=== PATIENT | female | born 1970 | race Caucasian/White ===

== ENCOUNTER → 2017-06-02 | Day surgery (SDC) | payer BC ==
--- NOTE | 2017-06-05 16:16 | PATH ---
Surgical Pathology Report Patient Name: MAHIN BURGOS Med. Rec. #: [id number] /Age/Gender: 1970 (Age: 46) / F Account: [id number] Location: [facility] RADIOLOGY U Taken: 06/02/2017 Received: 06/02/2017 Reported: 06/05/2017 Physicians: Hai You M.D. Specimen(s) Received RIGHT BREAST CORE BX, 2:00 TO 3:00, 1CM FN Clinical History Ultrasound findings: Suspicious Final Diagnosis BREAST, RIGHT, 2-3:00, 1 CM FN, CORE BIOPSY: INVASIVE DUCTAL CARCINOMA, WELL DIFFERENTIATED, AT LEAST 2MM IN THIS MATERIAL. Comment: Breast prognostic markers are pending. Findings will be issued as an addendum. Electronically Signed Lily Coburn M.D. Addendum Reported: 06/06/2017 Addendum Diagnosis Comment: Immunohistochemical stains performed and interpreted at [facility] for p63 and smooth muscle myosin heavy chain were utilized to evaluate this case. Results of Estrogen Receptor (ER) and Progesterone Receptor (VA) studies performed on block "1 " at [facility] are as follows: ER (clone [id number] mouse monoclonal antibody by [employer]): 95 % nuclear staining with moderate intensity (Positive). VA (clone16 mouse monoclonal antibody by [employer]): 90% nuclear staining with strong intensity (Positive). Results of Her2 (IHC) & Ki-67 studies performed on block "1 " at [place], [place] ([id number]) are as follows: Her2 IHC (EP3 from [employer], formerly known as [id number], using [employer] Polymer Refine detection kit): 1+ (Negative) Ki-67: up to 10% (Low proliferative index). Positive and negative controls (internal if applicable) show appropriate results. Formalin fixation and cold ischemic times are within current ASCO/CAP recommendations for ER, VA and Her2 testing. Lily Coburn M.D. Gross Description Received in formalin labeled "right breast 2-3:00, 1 cm fn," are 5 waterman-yellow, cylindrical portions of fibroadipose tissue ranging from 0.5-1.5 cm in length and averaging 0.2 cm in diameter. The specimens are submitted in toto in one cassette. Time to formalin fixation: 2 minutes Total formalin fixation time: Approximately 10 hours 06/02/2017
== END | disposition home or self-care (01) ==
LOC: FRADUS-SUR 12:38
PROVIDERS: ATTEND Surgery Surgical Oncology
PROC: 0HBT3ZX Excision of Right Breast, Percutaneous Approach, Diagnostic (ICD-10-PCS; principal; 2017-06-02)
DX: C50.211 Malignant neoplasm of upper-inner quadrant of right female breast (principal); N63.12 Unspecified lump in the right breast, upper inner quadrant
CPT/HCPCS: 19083; 87899; 88305-TC; 88341-TC; 88342-TC; A4648